=== PATIENT | male | born 1995 | race Caucasian/White ===

== ENCOUNTER 2019-07-17 20:58 | Emergency (ER) | payer OTHER ==
[2019-07-17 21:56] LABS: BLOOD UREA NITROGEN,BUN 17 mg/dL (7.0-18.0); CARBON DIOXIDE,CO2 30.6 mmol/L (21.0-32.0); CHLORIDE,CL 101 mmol/L (98-107); GLUCOSE RANDOM 109 mg/dL (74-106); POTASSIUM,K 3.9 mmol/L (3.5-5.1); SODIUM,NA 141 mmol/L (136-148)
--- NOTE | 2019-07-17 22:47 | CT ---
Indication: New onset seizure Technique: Nonenhanced axial CT imaging through the head. Sagittal and coronal reconstructions are provided. Comparison: None Findings: There is no intracranial hemorrhage, edema, or mass effect. There is a 2.5 cm hypoattenuating focus in the left parietal cortex, which may represent a focus of encephalomalacia or cystic cortical lesion. Remainder the brain demonstrates normal attenuation. Vigil and white matter differentiation is otherwise preserved. The ventricles are normal in size. The basal cisterns are patent. The calvarium is intact. The visualized paranasal sinuses and mastoid air cells are aerated. Impression: 1. Hypoattenuating focus in the left parietal lobe may represent a focus of encephalomalacia due to remote insult or a cystic cortical lesion. Further evaluation with contrast-enhanced MRI is recommended for better characterization. 2. No intracranial hemorrhage, edema, or mass effect. Please note that all CT scans at this facility use dose modulation, iterative reconstruction, and/or weight-based dosing when appropriate to reduce radiation dose to as low as reasonably achievable. Dictated by Sigrid Carmona MD @ Jul 17 2019 10:37PM Signed by Dr. Sigrid Carmona @ Jul 17 2019 10:46PM
--- NOTE | 2019-07-17 22:51 | EDM.PDOC ---
ED HPI GENERAL MEDICAL PROBLEM - General Chief Complaint: Neuro Symptoms/Deficits Stated Complaint: SEIZURE/CT SCAN Time Seen by Provider: 07/17/19 21:05 - History of Present Illness INITIAL COMMENTS - FREE TEXT/NARRATIVE: The patient is a 23-year-old healthy male who is been brought in by his friend for reported seizure. The patient has not had any headaches, fevers, difficulty walking, drug use or any acute complaints. Per the patient, he was sleeping on the couch and he started to wake up and he felt like his right hand was feeling funny and he does not remember anything else. Per the patient's friend who is in the room, he states that the patient was sleeping on the couch , when he noticed some gurgling breath sounds, then both of the patient's arms crossed each other, he started convulsing and foaming, both legs straightened and his feet were pointed, and he started exhibiting tonic clonic activity for 1 straight minute and then this stopped and then the patient was completely unresponsive for about several more minutes, and then he slowly started regaining normal consciousness and after about 20 to 30 minutes he became oriented again. They went to another facility but the CT scan was down so they came to our facility. - Related Data Allergies Allergy/AdvReac Type Severity Reaction Status Date / Time No Known Allergies Allergy Verified 07/17/19 21:06 Home Meds: Home Meds . [No Known Home Meds] 07/17/19 [History] Past Medical History HEENT History: Reports: None Cardiovascular History: Reports: Hypertension Respiratory History: Reports: None Gastrointestinal History: Reports: None Genitourinary History: Reports: None Musculoskeletal History: Reports: None Neurological History: Reports: None Psychiatric History: Reports: None Endocrine/Metabolic History: Reports: None Hematologic History: Reports: None Immunologic History: Reports: None Oncologic (Cancer) History: Reports: None Dermatologic History: Reports: None - Infectious Disease History Infectious Disease History: Reports: Chicken Pox - Past Surgical History Head Surgeries/Procedures: Reports: None Social & Family History - Family History Family Medical History: Noncontributory - Tobacco Use Smoking Status *Q: Never Smoker - Recreational Drug Use Recreational Drug Use: No ED ROS GENERAL - Review of Systems Review Of Systems: See Below (Positive for seizure, negative for headaches, negative visual changes, negative for difficulty walking, negative trauma, negative for fever, all other Positives and pertinent negatives as per HPI. All other pertinent systems were reviewed and are negative) ED EXAM, NEURO - Physical Exam Exam: See Below Text/Narrative:: Constitutional: No acute distress, Non-toxic appearance, appears a little anxious HEENT.: Normocephalic, Atraumatic, PERRL, EOMI, External ears are atraumatic, nares are patent without epistaxis Neck: Normal range of motion, Trachea Midline, No stridor Respiratory.: No respiratory distress, No tachypnea, Lungs Clear to Auscultation bilaterally without wheezes, rales, or rhonchi Cardiovascular.: Tachycardic rate and Rhythm without murmurs, rubs, or gallops , good peripheral perfusion GI: Abdomen soft and non tender, no masses, no rebound, rigidity, or guarding Genital Urinary: Deferred Musculoskeletal: Good range of motion. All 4 extremities present and atraumatic , no edema Back: Full Range of Motion Skin: Warm, Dry, Color is ethnicity appropriate, No acute rash. Lymphatic: No lymphadenopathy noted Neurological: Alert, Awake and oriented x 3, cranial nerves grossly intact, normal gait, cerebellar function tests intact, no focal deficits noted appreciate, GCS 15 Psych: Affect, Judgement, mood normal, mildly anxious Course - Vital Signs Text/Narrative:: A general first-time seizure work-up was initiated which includes lab work to make sure the patient does not have any malignant pathology such as hyponatremia , hypernatremia, hyper or hypoglycemia, hyper hyperosmolar syndrome, leukemias, lymphomas, renal failure (apparently the patient does have a history of hypertension but he has been noncompliant ), or obvious brain masses, hydrocephalus, brain cysts, intracranial hemorrhage, subdural hematoma, epidural hematoma (all thought to be highly unlikely since there is no trauma, headaches, etc. 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 The patient does not need to be admitted to the hospital but he does need close follow-up. Everything was explained to the patient and his friend in detail including not working on high ladders, scaffolding, and especially driving. The patient states that he will follow-up and his friend will make sure that he does follow-up. He can either follow-up with physicians that we provide for him , or he could follow-up with someone in his hometown. Last Recorded V/S: Last Vital Signs Temp 36.6 C 07/17/19 21:08 Pulse 83 07/17/19 22:41 Resp 20 07/17/19 22:41 BP 130/86 07/17/19 22:41 Pulse Ox 98 07/17/19 22:41 - Orders/Labs/Meds Labs: Laboratory Tests 07/17/19 07/17/19 07/17/19 Range/Units 21:30 21:30 21:35 WBC 11.56 H (4.0-11.0) K/uL RBC 5.61 (4.50-5.90) M/uL Hgb 17.1 H (13.0-17.0) g/dL Hct 49.1 (38.0-50.0) % MCV 87.5 (80.0-98.0) fL MCH 30.5 (27.0-32.0) pg MCHC 34.8 (31.0-37.0) g/dL RDW Std Deviation 38.0 (28.0-62.0) fl RDW Coeff of Nazanin 12 (11.0-15.0) % Plt Count 197 (150-400) K/uL MPV 10.40 (7.40-12.00) fL Neut % (Auto) 78.7 (48.0-80.0) % Lymph % (Auto) 12.5 L (16.0-40.0) % [place] % (Auto) 7.9 (0.0-15.0) % Eos % (Auto) 0.6 (0.0-7.0) % Baso % (Auto) 0.3 (0.0-1.5) % Neut # (Auto) 9.1 H (1.4-5.7) K/uL Lymph # (Auto) 1.4 (0.6-2.4) K/uL [place] # (Auto) 0.9 H (0.0-0.8) K/uL Eos # (Auto) 0.1 (0.0-0.7) K/uL Baso # (Auto) 0.0 (0.0-0.1) K/uL Nucleated RBC % 0.0 /100WBC Nucleated RBCs # 0 K/uL Sodium 141 (136-148) mmol/L Potassium 3.9 (3.5-5.1) mmol/L Chloride 101 (98-107) mmol/L Carbon Dioxide 30.6 (21.0-32.0) mmol/L BUN 17 (7.0-18.0) mg/dL Creatinine 1.1 (0.8-1.3) mg/dL Est Cr Clr Drug Dosing TNP Estimated GFR (MDRD) > 60.0 ml/min Glucose 109 H (74-106) mg/dL Calcium 8.9 (8.5-10.1) mg/dL Total Bilirubin 0.6 (0.2-1.0) mg/dL AST 19 (15-37) IU/L ALT 44 (14-63) IU/L Alkaline Phosphatase 126 H (46-116) U/L Total Protein 7.1 (6.4-8.2) g/dL Albumin 4.0 (3.4-5.0) g/dL Globulin 3.1 (2.6-4.0) g/dL Albumin/Globulin Ratio 1.3 (0.9-1.6) Urine Color YELLOW Urine Appearance CLEAR Urine pH 6.0 (5.0-8.0) Ur Specific [place] 1.025 (1.001-1.035) Urine Protein NEGATIVE (NEGATIVE) mg/dL Urine Glucose (UA) NEGATIVE (NEGATIVE) mg/dL Urine Ketones NEGATIVE (NEGATIVE) mg/dL Urine Occult Blood NEGATIVE (NEGATIVE) Urine Nitrite NEGATIVE (NEGATIVE) Urine Bilirubin NEGATIVE (NEGATIVE) Urine Urobilinogen 0.2 (<2.0) EU/dL Ur Leukocyte Esterase NEGATIVE (NEGATIVE) Urine Opiates Screen (NEGATIVE) Ur Oxycodone Screen (NEGATIVE) Urine Methadone Screen (NEGATIVE) Ur Barbiturates Screen (NEGATIVE) Ur Phencyclidine Scrn (NEGATIVE) Ur Amphetamine Screen (NEGATIVE) U Methamphetamines Scrn (NEGATIVE) U Benzodiazepines Scrn (NEGATIVE) U Cocaine Metab Screen (NEGATIVE) U Marijuana (THC) Screen (NEGATIVE) 07/17/19 Range/Units 21:35 WBC (4.0-11.0) K/uL RBC (4.50-5.90) M/uL Hgb (13.0-17.0) g/dL Hct (38.0-50.0) % MCV (80.0-98.0) fL MCH (27.0-32.0) pg MCHC (31.0-37.0) g/dL RDW Std Deviation (28.0-62.0) fl RDW Coeff of Naz[place] (11.0-15.0) % Plt Count (150-400) K/uL MPV (7.40-12.00) fL Neut % (Auto) (48.0-80.0) % Lymph % (Auto) (16.0-40.0) % [place] % (Auto) (0.0-15.0) % Eos % (Auto) (0.0-7.0) % Baso % (Auto) (0.0-1.5) % Neut # (Auto) (1.4-5.7) K/uL Lymph # (Auto) (0.6-2.4) K/uL [place] # (Auto) (0.0-0.8) K/uL Eos # (Auto) (0.0-0.7) K/uL Baso # (Auto) (0.0-0.1) K/uL Nucleated RBC % /100WBC Nucleated RBCs # K/uL Sodium (136-148) mmol/L Potassium (3.5-5.1) mmol/L Chloride (98-107) mmol/L Carbon Dioxide (21.0-32.0) mmol/L BUN (7.0-18.0) mg/dL Creatinine (0.8-1.3) mg/dL Est Cr Clr Drug Dosing Estimated GFR (MDRD) ml/min Glucose (74-106) mg/dL Calcium (8.5-10.1) mg/dL Total Bilirubin (0.2-1.0) mg/dL AST (15-37) IU/L ALT (14-63) IU/L Alkaline Phosphatase (46-116) U/L Total Protein (6.4-8.2) g/dL Albumin (3.4-5.0) g/dL Globulin (2.6-4.0) g/dL Albumin/Globulin Ratio (0.9-1.6) Urine Color Urine Appearance Urine pH (5.0-8.0) Ur Specific [place] (1.001-1.035) Urine Protein (NEGATIVE) mg/dL Urine Glucose (UA) (NEGATIVE) mg/dL Urine Ketones (NEGATIVE) mg/dL Urine Occult Blood (NEGATIVE) Urine Nitrite (NEGATIVE) Urine Bilirubin (NEGATIVE) Urine Urobilinogen (<2.0) EU/dL Ur Leukocyte Esterase (NEGATIVE) Urine Opiates Screen NEGATIVE (NEGATIVE) Ur Oxycodone Screen NEGATIVE (NEGATIVE) Urine Methadone Screen NEGATIVE (NEGATIVE) Ur Barbiturates Screen NEGATIVE (NEGATIVE) Ur Phencyclidine Scrn NEGATIVE (NEGATIVE) Ur Amphetamine Screen NEGATIVE (NEGATIVE) U Methamphetamines Scrn NEGATIVE (NEGATIVE) U Benzodiazepines Scrn NEGATIVE (NEGATIVE) U Cocaine Metab Screen NEGATIVE (NEGATIVE) U Marijuana (THC) Screen NEGATIVE (NEGATIVE) Departure - Departure Time of Disposition: 22:52 Disposition: Home, Self-Care 01 Condition: Good Clinical Impression: Seizure, Brain cyst - Discharge Information Instructions: Seizure, Adult, [id number] Referrals: PCP,None [Primary Care Provider] - Susan Roblero MD [Physician] - Forms: ED Department Discharge Sepsis Event Note - Evaluation Sepsis Screening Result: No Definite Risk - Focused Exam Vital Signs: Vital Signs Temp Pulse Resp BP Pulse Ox 07/17/19 22:41 83 20 130/86 98 07/17/19 21:08 36.6 C 114 H 18 155/97 H 98 Date Exam was Performed: 07/17/19 Time Exam was Performed: 22:52
== END 2019-07-17 23:09 | disposition home or self-care (01) ==
LOC: MW.ED 20:58
DX: R56.9 Unspecified convulsions (principal); G93.0 Cerebral cysts; I10 Essential (primary) hypertension
CPT/HCPCS: 36415; 70450; 70450-26; 80053; 80305-QW; 81003; 85025; 99284; 99285-25